=== PATIENT | female | born 1960 | race Caucasian/White ===

== ENCOUNTER 2017-03-08 16:37 | Emergency (ER) | payer BC ==
--- NOTE | 2017-03-08 17:28 | UC ---
UC General HPI - HPI Summary HPI Summary: The patient comes in today for: 1. Right heel and right knee pain: Onset: last night. Palliative/provocative: Pressure on the heel (standing) makes it worse. Straightening the leg makes the right knee worse. Quality: Sharp and dull Region: Right knee and right heel Severity: Heel: 2/10. Knee: 2/10 Time: Constant. Associated symptoms: She denies any pain in her calf. She denies any lower leg swelling on the right. Previous treatment: None at home other than aspercreme. Previous disease: None other than falling down the steps on her right knee in the past. With the fall, she also hit her left shoulder, and the left knee and left hip /buttocks. The patient has not taken any medication--"I don't take medications--I take supplements and herbal treatments." * - History of Current Complaint Chief Complaint: UCTrauma Stated Complaint: RIGHT KNEE/HEEL PAIN,LEFT LEG PAIN Time Seen by Provider: 03/08/17 17:21 Hx Obtained From: Patient, Family/Documentation Clerk - Allergy/Home Medications Allergies/Adverse Reactions: Allergies Allergy/AdvReac Type Severity Reaction Status Date / Time Latex Allergy Rash Verified 03/08/17 16:55 Penicillins Allergy See Comment Verified 03/08/17 16:55 Metoclopramide [From Reglan] AdvReac Anxiety Verified 03/08/17 16:55 Home Medications: Home Medications Glycemic Index 1 tab PO DAILY 03/08/17 [History] Levothyroxine TAB* [Synthroid TAB*] 88 mcg PO 0800 03/08/17 [History Confirmed 03/08/17] PMH/Surg Hx/FS Hx/Imm Hx Previously Healthy: No Endocrine History: Diabetes - Prediabetic, Thyroid Disease - Thyroid nodules. - Surgical History Surgical History: Yes Surgery Procedure, Year, and Place: sinus, oopherectomy, hysterectomy, cholecystectomy,breast cyst LEFT - Family History Known Family History: Positive: Diabetes Negative: Hypertension - Social History Occupation: Employed Full-time Alcohol Use: Weekly Substance Use Type: None Smoking Status (MU): Never Smoked Tobacco Review of Systems Constitutional: Negative Skin: Negative Eyes: Negative ENT: Negative Respiratory: Negative Cardiovascular: Negative Gastrointestinal: Diarrhea - She has been seen her primary care provider for this. Musculoskeletal: Arthralgia All Other Systems Reviewed And Are Negative: Yes Physical Exam Triage Information Reviewed: Yes Appearance: Well-Appearing, No Pain Distress - Though she walks on the ball of her foot. Vital Signs: Initial Vital Signs Temp 98.6 F 03/08/17 16:45 Pulse 77 03/08/17 16:45 Resp 16 03/08/17 16:45 BP 148/69 03/08/17 16:45 Pulse Ox 97 03/08/17 16:45 Vital Signs Reviewed: Yes Eyes: Positive: Conjunctiva Clear. Negative: Discharge ENT: Positive: Hearing grossly normal. Negative: Pharyngeal erythema, Nasal congestion, Nasal drainage, TM bulging, TM dull, TM red, Tonsillar swelling, Tonsillar exudate Dental: Negative: Gross Decay/Caries @, Dental Fracture @ Neck: Positive: Supple, Nontender, No Lymphadenopathy. Negative: Nuchal Rigidity Respiratory: Positive: Chest non-tender, Lungs clear, No respiratory distress, No accessory muscle use Cardiovascular: Positive: RRR, No Murmur Abdomen Description: Positive: Nontender, No Organomegaly, Soft. Negative: Distended, Guarding Musculoskeletal: Positive: Strength Intact, No Edema, Other: - Right knee/heel: The right heel does not have any ecchymosis or edema. There is no marked tenderness to palpation. The right knee is difficult to assess due to adipose tissue. No posterior capsule or hamstring tendon tenderness. No patellar pressure discomfort or laxity of the cruciate or collateral ligaments. Cramer test was normal for both legs and there was no divot of the Achilles tendon on the right Neurological: Positive: Alert, Muscle Tone Normal Psychological: Positive: Age Appropriate Behavior, Consolable Skin: Negative: rashes, breakdown Diagnostics - Radiology No standard instances Xray Interpretation: Positive (See Comments) - IMPRESSION: 1. Negative for fracture. 2. 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 The most accurate assessment would be based on the weightbearing view. REPORT AND IMPRESSION: Negative for calcaneal fracture or articular malalignment. Moderate plantar fascia origin bone spur. Heel fat pad soft tissue swelling. Course/Dx - Course Course Of Treatment: The patient was told of the results of her x-rays. She refuses to take any oral medications and for her conditions, just wants to take use an neoprene sleeve for her knee and get PT from her primary care provider. She wants to try topical treatments. - Differential Dx - Multi-Symptom Provider Diagnoses: Osteoarthritis of the right knee. heel spur of the right foot. Discharge - Discharge Plan Condition: Stable Disposition: HOME Patient Education Materials: Plantar Fasciitis (ED), Heel Spur (ED), Osteoarthritis (ED), Patellofemoral Pain Syndrome (ED) Referrals: Daisy Bae MD [Primary Care Provider] - As Soon As Possible (Please see your primary care provider as soon as you can for re-evaluation and possibly getting physical therapy order.) Additional Instructions: YOu may have pain in your right knee also from patellofemoral syndrome. Information about this was added to your discharge papers.
--- NOTE | 2017-03-08 18:39 | RAD ---
Indication: RIGHT heel pain post fall last night. Comparison: No relevant prior exams available on the [facility] for comparison. Technique: 4 view RIGHT hindfoot exam. REPORT AND IMPRESSION: Negative for calcaneal fracture or articular malalignment. Moderate plantar fascia origin bone spur. Heel fat pad soft tissue swelling.
--- NOTE | 2017-03-08 18:48 | RAD ---
Indication: Pain post fall last night. Osteoporosis. Comparison: None. Technique: RIGHT knee: AP, tunnel, crosstable lateral, sunrise views. Report: Negative for joint effusion, fracture, or malalignment. Tricompartmental osteophytosis. Moderately severe medial joint space narrowing and partial flattening of the articular surfaces. Unremarkable soft tissue contours. Diffuse skeletal muscle atrophy. IMPRESSION: 1. Negative for fracture. 2. 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 The most accurate assessment would be based on the weightbearing view.
[2017-03-08 18:52] VITALS: BP 116/81
== END 2017-03-08 19:23 | disposition home or self-care (01) ==
LOC: UCCORT 16:37
DX: M77.31 Calcaneal spur, right foot (principal); M25.561 Pain in right knee; Z88.0 Allergy status to penicillin
CPT/HCPCS: 99212; G0463

== ENCOUNTER 2017-09-07 09:01 | Emergency (ER) | payer BC | END 2017-09-07 10:25 | disposition left against medical advice (07) | LOC: UCCORT 09:01 | DX: R05 Cough (principal); R51 Headache; R68.83 Chills (without fever); Z53.21 Procedure and treatment not carried out due to patient leaving prior to being seen by health care provider ==

== ENCOUNTER 2017-09-07 11:53 | Emergency (ER) | payer BC ==
[2017-09-07 13:41] VITALS: BP 153/96
--- NOTE | 2017-09-07 13:59 | UC ---
Respiratory Complaint HPI - HPI Summary HPI Summary: 57 year old female with cough. c/o productive cough with clear thin secretions that started 3 days ago. no fever, (+) laryngitis . no SOB. [ End ] - History of Current Complaint Chief Complaint: UCRespiratory Stated Complaint: COUGH Time Seen by Provider: 09/07/17 13:57 Hx Obtained From: Patient ?: No Onset/Duration: Gradual Onset Timing: Constant Severity Initially: Mild Severity Currently: Moderate Character: Cough: Nonproductive Aggravating Factors: Nothing Alleviating Factors: Nothing Associated Signs And Symptoms: Positive: Nasal Congestion, Sinus Discomfort - Allergies/Home Medications Allergies/Adverse Reactions: Allergies Allergy/AdvReac Type Severity Reaction Status Date / Time Latex Allergy Rash Verified 09/07/17 13:33 Penicillins Allergy See Comment Verified 09/07/17 13:33 Metoclopramide [From Reglan] AdvReac Anxiety Verified 09/07/17 13:33 Home Medications: Home Medications [place] 1 spray SL DAILY PRN 09/07/17 [History] Thyroid Support 1 tab PO DAILY 09/07/17 [History] PMH/Surg Hx/FS Hx/Imm Hx Previously Healthy: Yes Endocrine History: Thyroid Disease - Surgical History Surgical History: Yes Surgery Procedure, Year, and Place: sinus, oopherectomy, hysterectomy, cholecystectomy,breast cyst LEFT - Family History Known Family History: Positive: Diabetes Negative: Hypertension - Social History Occupation: Employed Full-time Lives: With Family Alcohol Use: Occasionally Substance Use Type: None Smoking Status (MU): Never Smoked Tobacco Review of Systems Constitutional: Fatigue ENT: Ear Ache Respiratory: Cough Is Patient Immunocompromised?: No All Other Systems Reviewed And Are Negative: Yes Physical Exam Triage Information Reviewed: Yes Appearance: Well-Appearing, No Pain Distress, Well-Nourished Vital Signs: Initial Vital Signs Temp 98.5 F 09/07/17 13:36 Pulse 77 09/07/17 13:36 Resp 18 09/07/17 13:36 BP 153/96 09/07/17 13:36 Pulse Ox 97 09/07/17 13:36 Vital Signs Reviewed: Yes Eye Exam: Normal ENT Exam: Normal ENT: Positive: Pharynx normal, Nasal congestion, TM dull - left Neck exam: Normal Respiratory Exam: Normal Respiratory: Positive: Chest non-tender, Lungs clear, Normal breath sounds, No respiratory distress, No accessory muscle use Cardiovascular Exam: Normal Musculoskeletal Exam: Normal Neurological Exam: Normal Psychological Exam: Normal Skin Exam: Normal UC Diagnostic Evaluation - Laboratory O2 Sat by Pulse Oximetry: 97 Respiratory Course/Dx - Course Course Of Treatment: Viral -- supportive care. - Differential Dx/Diagnosis Differential Diagnosis/HQI/PQRI: Bronchitis, Laryngitis, Lower Resp Infection, Sinusitis Provider Diagnoses: URI Discharge - Discharge Plan Condition: Good Disposition: HOME Prescriptions: Benzonatate [Benzonatate 200 MG] 200 mg PO TID #20 cap Patient Education Materials: Upper Respiratory Infection (ED) Referrals: Daisy Bae MD [Primary Care Provider] - 4 Days
== END 2017-09-07 14:24 | disposition home or self-care (01) ==
LOC: UCCORT 11:53
DX: J06.9 Acute upper respiratory infection, unspecified (principal); Z88.0 Allergy status to penicillin; Z88.8 Allergy status to other drugs, medicaments and biological substances; Z91.040 Latex allergy status
CPT/HCPCS: 99212; G0463